=== PATIENT | female | born 1995 | race Caucasian/White ===

== ENCOUNTER 2023-12-21 11:46 | Outpatient (OUT) | payer OTHER, SELFPAY ==
[2023-12-21 12:27] LABS: Basophils Absolute Auto 0.1 10^3/uL (0.0-0.1); Basophils Percent Auto 0.4 % (0.2-2.0); Eosinophils Absolute Auto 0.1 10^3/uL (0.0-0.7); Eosinophils Percent Auto 0.7 % (0.9-7.0); Hematocrit 37.1 % (36.0-48.0); Hemoglobin 11.9 g/dL (12.0-16.0); Immature Granulocytes Abs Auto 0.02 10^3/uL (0.00-0.03); Immature Granulocytes Pct Auto 0.2 % (0.0-0.5); Lymphocytes Absolute Auto 2.5 10^3/uL (1.2-3.8); Mean Corpuscular HGB Conc 32.1 g/dL (29.9-35.2); Mean Corpuscular Hemoglobin 28.1 pg (26.7-34.0); Mean Corpuscular Volume 87.5 fL (81.0-99.0); Mean Platelet Volume 9.5 fL (9.5-13.5); Monocytes Absolute Auto 0.7 10^3/uL (0.3-0.8); Monocytes Percent Auto 5.9 % (1.7-12.0); Neutrophils Absolute Auto 8.7 10^3/uL (1.4-6.5); Neutrophils Percent Auto 71.8 % (43.0-75.0); Platelet Count 233 10^3/uL (150-450); Red Blood Count 4.24 10^6/uL (4.20-5.40); Red Cell Distribution Width 12.4 % (11.0-15.0); White Blood Count 12.1 10^3/uL (4.0-11.0)
[2023-12-21 12:43] LABS: Erythrocyte Sedimentation Rate 41 mm/hr (<=20)
[2023-12-21 12:52] LABS: Estimated Average Glucose 108 mg/dL; Glycohemoglobin A1C 5.4 % (4.5-6.2)
[2023-12-21 12:55] LABS: Alanine Aminotransferase 25 U/L (14-59); Albumin Globulin Ratio 0.9; Albumin Level 3.3 g/dL (3.4-5.0); Alkaline Phosphatase 32 U/L (46-116); Anion Gap 10.6; Aspartate Amino Transferase 16 U/L (15-37); BUN Creatinine Ratio 8.6; Bilirubin Total 0.9 mg/dL (0.2-1.0); Calcium 8.8 mg/dL (8.5-10.1); Carbon Dioxide 26.1 mmol/L (21.0-32.0); Chloride 105 mmol/L (98-107); Estimated GFR (African America >60 (>=60 mL/min/1.73m^2); Estimated GFR (Non-African Ame >60 (>=60 mL/min/1.73m^2); Free T3 2.81 pg/mL (2.18-3.98); Globulin 3.6 g/dL; Glucose 99 mg/dL (74-106); Potassium 3.7 mmol/L (3.5-5.1); Sodium 138 mmol/L (136-145); Total Protein 6.9 g/dL (6.4-8.2)
[2023-12-22 08:13] LABS: Insulin 13.7 uIU/mL (2.6-24.9)
== END 2023-12-21 11:47 | disposition home or self-care (01) ==
LOC: LAB 11:52
PROVIDERS: PCP Family Medicine; Visit Provider Family Medicine
DX: K52.9 Noninfective gastroenteritis and colitis, unspecified (principal); R53.83 Other fatigue; R73.09 Other abnormal glucose; I10 Essential (primary) hypertension; Z12.12 Encounter for screening for malignant neoplasm of rectum; D64.9 Anemia, unspecified; E03.9 Hypothyroidism, unspecified
CPT/HCPCS: 36415; 80053; 83036; 83525; 83540; 83690; 84436; 84443; 84481; 85025; 85652

== ENCOUNTER 2023-12-21 16:52 | Emergency (ER) | payer OTHER, SELFPAY ==
[2023-12-21] VITALS (7 sets, daily range): BP systolic 124–133; BP diastolic 77–92; PULSE 110–120; TEMP 37.2–38.9; O2SAT 95–99; BMI 36.6
--- NOTE | 2023-12-21 17:24 | CT_ITS ---
The [address] [address] Patient Name: RAUL RAMIRES MRN: [id number] date: 1995 Sex: F Assigned Patient Location: ER Current Patient Location: .[facility] Accession/Order Number: [id number] Exam Date: 12/21/2023 18:25 Report Date: 12/21/2023 19:37 At the request of: ELA MARIE Procedure: CT soft tissue neck w con EXAM: CT soft tissue neck w con HISTORY: [Left lower dental pain swelling COMPARISON: None. TECHNIQUE: CT examination of the soft tissues of the neck following the administration of intravenous contrast. Coronal and sagittal reformations were performed. Dose reduction techniques were achieved by using automated exposure control and/or adjustment of mA and/or kV according to patient size and/or use of iterative reconstruction technique. FINDINGS: There is a 2.5 x 1 cm ill-defined fluid collection with surrounding mild enhancement and inflammatory changes adjacent to the buccal aspect of the left mandibular body, over the left anterior perimandibular region, suggesting odontogenic abscess. There is associated left-sided swelling and stranding of the adjacent subcutaneous tissues, suggestive of facial cellulitis in this region. There is a focal area of lucency surrounding the root of the third mandibular molar on the left, suggesting apical tooth abscess. No evidence of cortical destruction. The visualized aerodigestive tract shows no discrete mass lesion or mass effect. Vocal cords are symmetric. No suspicious cervical adenopathy is seen. There are a few small lymph nodes in the bilateral submandibular and submental regions, largest in the left submandibular region and measures 7 mm in short axis. The visualized salivary glands show no discrete abnormality. The thyroid gland is normal in size and shows no discrete concerning nodule. The visualized major vasculature is grossly patent. The paranasal sinuses show no air fluid level. The paranasal sinuses are clear. The mastoid air cells are clear. The osseous structures demonstrate no suspicious lytic or blastic lesion. CT/CT soft tissue neck w con IMPRESSION: 1. An approximately 2.5 x 1 cm odontogenic abscess and associated facial cellulitis at the left perimandibular region. Small bilateral submandibular and submental lymph nodes, likely reactive. 2. Periapical lucency surrounding the root of the left third mandibular molar teeth, suggesting apical tooth abscess. No evidence of osteomyelitis. Electronically authenticated by: JEREMIAH DARLING Date: 12/21/2023 19:37
--- NOTE | 2023-12-21 17:28 | ED_ITS ---
HPI HPI - General Adult General Chief complaint: Dental/Oral Stated complaint: Dental Pain Time Seen by Provider: 12/21/23 16:54 Source: patient Mode of arrival: walk-in Limitations: no limitations History of Present Illness HPI narrative: 28-year-old female to the emergency department with chief complaint of dental pain. Patient reports over the last 48 hours she has developed some swelling to her left sided jaw as well as some pain. She reports she has known poor dentition. She reports this has happened before and she had to be on antibiotics and see a dentist. She reports some fever today. She denies any cough, rhinorrhea, congestion. She reports the pain radiates into her neck. She denies being immunocompromise. Denies diabetes history. Related Data Home Medications ?Medication ?Instructions ?Recorded ?Confirmed amoxicillin 875 mg-potassium 1 tab PO Q12H 12/21/23 12/21/23 clavulanate 125 mg tablet Allergies Allergy/AdvReac Type Severity Reaction Status Date / Time No Known Drug Allergies Allergy Verified 12/21/23 16:55 Opioid HPI Opioid Management Most Recent Opioid Data: Last Pain Scale 6 12/21/23 17:30 12/21/23 Last MAR Pain Assessment 12/21/23 17:30 Review of Systems ROS Status of ROS 10 or more systems reviewed and unremark able except as noted in history and below PFSH PFSH Social History Little interest or pleasure in doing things: not at all Feeling down, depressed, or hopeless: not at all Exam Narrative Exam Narrative: VITALS: I have reviewed the triage vital signs. GENERAL: Adult female in no acute distress NEURO: Alert and oriented. Moves all extremities. Face is symmetric and expressive. EYES: PERRL. No scleral icterus or conjunctival injection. No discharge. HENT: Normocephalic, atraumatic. Hearing is grossly intact. Nares grossly patent and without discharge. Mucous membranes moist. There is some left-sided submandibular swelling. Generally poor dentition. No focal dental abscess. There are some gingival erythema about the left lower teeth. NECK: No JVD. Patient moves neck without restriction. No crepitus. CARDIO: Rhythm regular. Normal rate. No murmur, rub, or gallop. Pulses equal bilaterally in the upper and lower extremity. No lower extremity edema. PULM: Lungs clear to auscultation in all garcia. No wheezes, rales, or rhonchi. No conversational dyspnea. No splinting, stridor, or accessory muscle use. GI/: Abdomen is soft and non-tender. Normoactive bowel sounds. EXTREMITIES: Symmetric muscle bulk. No joint swelling. No clubbing, cyanosis, or deformity. SKIN: Warm and dry. Normal turgor. No rash or lesions appreciated. PSYCH: Mood, affect, and interaction is appropriate to the setting. Constitutional Vital Signs, click to edit/add: Last Vital Signs Temp 99.8 F 12/21/23 18:38 Pulse 110 H 12/21/23 18:19 Resp 18 12/21/23 18:19 BP 128/77 12/21/23 18:19 Pulse Ox 99 12/21/23 18:19 O2 Del Method Room Air 12/21/23 16:55 Course Vital Signs Vital signs: Vital Signs Temperature 102.1 F H 12/21/23 16:55 Pulse Rate 120 H 12/21/23 16:55 Respiratory Rate 20 12/21/23 16:55 Blood Pressure 133/79 12/21/23 16:55 Pulse Oximetry 95 12/21/23 16:55 Oxygen Delivery Method Room Air 12/21/23 16:55 Temperature 99.8 F 12/21/23 18:38 Pulse Rate 110 H 12/21/23 18:19 Respiratory Rate 18 12/21/23 18:19 Blood Pressure 128/77 12/21/23 18:19 Pulse Oximetry 99 12/21/23 18:19 Oxygen Delivery Method Room Air 12/21/23 16:55 Medical Decision Making [facility] Narrative Medical decision making narrative: 28-year-old female to the emergency department chief complaint of left-sided submandibular/neck swelling. Febrile, tachycardic, otherwise stable vitals. Basic labs to be obtained. test. Tylenol for her fever. Will obtain CT imaging to evaluate for deep space infection. Patient agrees with this plan. She does have a leukocytosis. Chemistry is unremarkable. test is negative Care was signed out to Dr. Tapia with results of CT imaging pending. Lab Data Lab results reviewed: Yes I reviewed the patient's lab results Labs: Lab Results 12/21/23 Range/Units 17:45 Sodium 141 (136-145) mmol/L Potassium 3.5 (3.5-5.1) mmol/L Chloride 105 (98-107) mmol/L Carbon Dioxide 26.5 (21.0-32.0) mmol/L Anion Gap 13.0 BUN 6.0 L (7.0-18.0) mg/dL Creatinine 0.75 (0.55-1.02) mg/dL Est GFR ( Amer) >60 (>=60 mL/min/1.73m^2) Est GFR (Non-Af Amer) >60 (>=60 mL/min/1.73m^2) BUN/Creatinine Ratio 8.0 Glucose 81 (74-106) mg/dL Calcium 9.1 (8.5-10.1) mg/dL Serum HCG, Qual Negative (NEGATIVE) Discharge Plan Discharge Chief Complaint: Dental/Oral Clinical Impression: Dental abscess Patient Disposition: Still a Patient Prescriptions / Home Meds: No Action amoxicillin-pot clavulanate 875-125 mg tablet 1 tab PO Q12H Print Language: Turkish Referrals: Mark Rayo MD [Primary Care Provider] - 1 week
[2023-12-21] MEDS: ACETAMINOPHEN 325 MG TABLET 650 MG PO (17:30)
[2023-12-21 18:00] LABS: Calcium 9.1 mg/dL (8.5-10.1); Carbon Dioxide 26.5 mmol/L (21.0-32.0); Chloride 105 mmol/L (98-107); Estimated GFR (African America >60 (>=60 mL/min/1.73m^2); Estimated GFR (Non-African Ame >60 (>=60 mL/min/1.73m^2); Glucose 81 mg/dL (74-106); Potassium 3.5 mmol/L (3.5-5.1); Sodium 141 mmol/L (136-145)
[2023-12-21 18:22] LABS: HCG Qualitative NEGATIVE (NEGATIVE); Internal Control Within Normal Limits
[2023-12-21] MEDS: METHYLPREDNISOLONE SOD SUCC PF 125 MG/2 ML VIAL IVP (19:47)
[2023-12-21] MEDS: CLINDAMYCIN PHOSPHATE/D5W 900 MG/50 ML PREMIX 100 MG IV (19:47)
[2023-12-21] MEDS: IBUPROFEN 600 MG TABLET PO (19:57)
== END 2023-12-21 20:39 | disposition home or self-care (01) ==
PROVIDERS: Student in an Organized Health Care Education/Training Program; Emergency Provider Internal Medicine; PCP Family Medicine
DX: K52.9 Noninfective gastroenteritis and colitis, unspecified (principal); R53.83 Other fatigue; I10 Essential (primary) hypertension; R73.09 Other abnormal glucose; Z12.12 Encounter for screening for malignant neoplasm of rectum; D64.9 Anemia, unspecified; E03.9 Hypothyroidism, unspecified; K04.7 Periapical abscess without sinus; L03.211 Cellulitis of face
CPT/HCPCS: 36415; 70491; 80048; 80053; 83036; 83525; 83540; 83690; 84436; 84443; 84481; 84703; 85025; 85652; 96365; 96375; 99285; J0736; J2919; Q9967